=== PATIENT | female | born 1945 | race Caucasian/White ===

== ENCOUNTER 2019-03-26 12:17 | Outpatient (CLI) | payer MEDICARE, OTHER ==
--- NOTE | 2019-03-26 18:44 | Diagnostic Imaging Report ---
JEFF GONZALEZ [facility] [address] [facility] [address] [address] Report Submission Date: Mar 26, 2019 6:32:20 PM CDT Patient Study Name: YULIET MEZA Date: Mar 26, 2019 12:22:30 PM CDT Modality Type: DX Gender: F Description: FOOT 3 VIEWS OR MORE : 49 Institution: [facility] Physician: JEFF GONZALEZ HISTORY: 73-year-old female with right foot pain, type 2 diabetes. COMPARISON: None available TECHNIQUE: 3 views of the right foot were performed. FINDINGS: No acute fracture or dislocation are identified about the right foot. No osseous erosions are identified to suggest advanced osteomyelitis. 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 Small plantar calcaneal bone spur and Achilles insertion enthesophyte are noted. There is an os trigonum. There is mild osteoarthritis of the midfoot IMPRESSION: 1. No fracture or acute osseous abnormality of the right foot. 2. Nonacute findings as detailed above. Electronically signed on Mar 26, 2019 6:32:20 PM CDT by: Anjum QUIROS
== END 2019-03-26 12:19 ==
LOC: RAD 12:17
PROVIDERS: ATTEND Podiatrist Foot & Ankle Surgery
DX: M79.671 Pain in right foot (principal)
CPT/HCPCS: 73630